=== PATIENT | female | born 1995 | race African-American/Black ===

== ENCOUNTER 2021-05-24 16:00 | Emergency (ER) | payer OTHER, SELFPAY ==
--- NOTE | ~2021-05-24 | CT_ITS ---
Indication: Fall, injury EXAMINATION: CT brain, CT cervical spine, CT facial bones. Axial imaging with coronal and sagittal reformatted images. Radiation dose is 802, 738, 549. CT brain; There is no midline shift. There is no mass effect. There is no hemorrhage. The basilar cisterns are patent. The posterior fossa is grossly within normal limits. The ventricles within normal limits. The visualized sinuses are grossly clear. CT cervical spine; Straightening of the normal lordosis. This may be due to position or spasm. There is no fracture or dislocation. CT facial bones; Nasal bone fractures. Depression on the left No acute fracture. CT/CT facial bones wo con IMPRESSION: Nasal bone fractures. Medial Depression of the left-sided fracture. Negative acute noncontrast CT of the the brain. No acute fracture or dislocation of the cervical spine. Some reversal of the normal lordosis may be due to position or spasm
--- NOTE | ~2021-05-24 | CT_ITS ---
Indication: Fall, injury EXAMINATION: CT brain, CT cervical spine, CT facial bones. Axial imaging with coronal and sagittal reformatted images. Radiation dose is 802, 738, 549. CT brain; There is no midline shift. There is no mass effect. There is no hemorrhage. The basilar cisterns are patent. The posterior fossa is grossly within normal limits. The ventricles within normal limits. The visualized sinuses are grossly clear. CT cervical spine; Straightening of the normal lordosis. This may be due to position or spasm. There is no fracture or dislocation. CT facial bones; Nasal bone fractures. Depression on the left No acute fracture. CT/CT cervical spine wo con IMPRESSION: Nasal bone fractures. Medial Depression of the left-sided fracture. Negative acute noncontrast CT of the the brain. No acute fracture or dislocation of the cervical spine. Some reversal of the normal lordosis may be due to position or spasm
--- NOTE | ~2021-05-24 | CT_ITS ---
Indication: Fall, injury EXAMINATION: CT brain, CT cervical spine, CT facial bones. Axial imaging with coronal and sagittal reformatted images. Radiation dose is 802, 738, 549. CT brain; There is no midline shift. There is no mass effect. There is no hemorrhage. The basilar cisterns are patent. The posterior fossa is grossly within normal limits. The ventricles within normal limits. The visualized sinuses are grossly clear. CT cervical spine; Straightening of the normal lordosis. This may be due to position or spasm. There is no fracture or dislocation. CT facial bones; Nasal bone fractures. Depression on the left No acute fracture. CT/CT head/brain wo con IMPRESSION: Nasal bone fractures. Medial Depression of the left-sided fracture. Negative acute noncontrast CT of the the brain. No acute fracture or dislocation of the cervical spine. Some reversal of the normal lordosis may be due to position or spasm
[2021-05-24 16:20] VITALS: BP 121/72; PULSE 94; RESP 20; TEMP 37.2; O2SAT 97; BMI 39.1
[2021-05-24] MEDS: Acetaminophen 325 MG TABLET 975 MG PO (16:56)
[2021-05-24] MEDS: oxyCODONE HCl Immed Release 5 MG TABLET PO (16:56)
--- NOTE | 2021-05-24 17:18 | ED.FALL ---
HPI - Fall General Chief Complaint: Fall Stated Complaint: fell nose pain and swelling Time Seen by Provider: 05/24/21 16:40 Source: patient Mode of arrival: ambulatory Limitations: no limitations History of Present Illness HPI Narrative: 25-year-old female presenting to the ED with complaints of facial/ nose pain with epistaxis after she sustained a fall where she was running up the stairs slipped while she was running up the stairs due to the water hitting her nose on the steps prior to arrival. She denies loss of consciousness. She denies being on any blood thinners. She denies any symptoms prior to the fall. She is complaining of facial / nose pain otherwise denies any other symptoms complaints or concerns or injuries at this time. Denies any dizziness, headaches, change in vision, nausea /vomiting, trouble swallowing or breathing, neck pain / injury, back pain / injury, abdominal pain / injury or any other symptom complaints or concerns at this time. 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) Fall from: other (walking up the stairs ) Fall witnessed: no Place fall occurred: home Loss of consciousness: none Prolonged down time: no Symptoms prior to fall: none Context: tripped/slipped Location of injury: face (nose) Severity: severe Severity scale (1-10): >10 Quality: throbbing Associated symptoms (after fall): denies Related Data Allergies Allergy/AdvReac Type Severity Reaction Status Date / Time No Known Allergies Allergy Unverified 08/09/20 16:14 Review of Systems Review of Systems: Constitutional : No changes in activity, No lethargy, No recent prior head injury, No agitation, No increased fussiness ENT/Mouth : No Ear Pain, No Nasal discharge/drainage Eyes: No Eye Pain, No Swelling, No Redness, No Foreign Body, No Vision Changes Cardiovascular : No Chest Pain, No SOB Respiratory : No Cough Gastrointestinal : No Nausea, No Vomiting, No abdominal Pain Genitourinary : No Dysuria, No Urinary Frequency, No Urinary Incontinence, No Urgency, No Flank Pain Musculoskeletal : + Facial/nose pain pain/epistaxis, No joint pain, No neck stiffness, No back pain/injury Skin : No lacerations Neuro : No unsteady gait, No Paresthesias, No Loss of Consciousness, No altered mental status, No Headache Yes all other systems are reviewed and are negative PMFSH Past Medical History Attestation statement: The following information was validated with the patient. Social History Social History Advance Directives: No Advance Directives Information Provided: Yes Patient : No Physical Exam Vital Signs: Vital Signs: Last Vital Signs Temp 98.9 F 05/24/21 16:20 Pulse 94 05/24/21 16:20 Resp 20 05/24/21 16:20 BP 121/72 05/24/21 16:20 Pulse Ox 97 05/24/21 16:20 Body Mass Index 39.1 vital signs have been reviewed as normal and appeared to be correct. Blood pressure normal. Heart rate normal. Respiration rate normal. Temperature normal. Oxygen saturation normal. Appearance: Alert. Oriented X3. No acute distress. Head: Normal external exam. Normocephalic. Atraumatic. No T[place]well signs noted. No raccoon eyes noted Eyes: PERRLA. EOMI. Conjunctiva and sclera normal. Eyelids normal. ENT: patient noted to have resolved bilateral epistaxis with dry blood at the nares no septal hematoma is noted bilaterally. Pharynx normal. Uvula midline. Moist mucous membranes. No trismus noted. No drooling noted. No muffled voice noted. Neck: Normal inspection. Neck supple. FROM. No adenopathy. No meningeal signs. CVS: Normal heart rate and rhythm. Heart sound normal. Pulses normal throughout. No murmurs/rales/gallops. Respiratory: No respiratory distress. Painless inspiration. Breath sounds normal. No wheezes/rales/rhonchi noted. Chest nontender. No accessory muscle usage noted or decreased air movement noted. Abdomen: Soft and nontender. Bowel sounds normal in all 4 quadrants. No distention noted. No organomegaly noted. No visible injury noted. Back: Full range of motion noted. No rashes/lesion/induration/fluctuance or signs of infection noted. Skin: Skin warm and dry. Normal skin color. Normal skin turgor. No rashes/lesions/lacerations noted. Extremities: Extremities exhibit normal range of motion. Extremities nontender. Neuro: Oriented X 3. No motor deficit. No sensory deficit. Reflexes normal. Normal steady gait. No focal neuro deficits noted. Vascular: + radial pulses/+ 2 distal pedal pulses/+2 dorsalis pedis b/l. Normal cap refill. No cyanosis noted to upper extremity nails and lower extremity toes nails. Course Course Course Narrative: 25-year-old female presenting to the ED with nose/facial pain and resolved bilateral epistaxis that occurred after she slipped and fell while running up the stairs. She denies loss of consciousness she is not on any blood thinners. Did not have any symptoms prior to the fall. Will obtain a CT scan of brain /cervical spine and facial bones. Provide 975mg of tylenol and 5mg of oxycodone. Then re-evaluate. MDM - Fall Medical Records Attestation: I reviewed the patient's medical records.
[2021-05-24 18:00] VITALS: BP 119/71; PULSE 71; RESP 16; TEMP 36.8; O2SAT 99
== END 2021-05-24 19:43 | disposition home or self-care (01) ==
PROVIDERS: Emergency Provider Internal Medicine; PCP Internal Medicine
DX: S02.2XXA Fracture of nasal bones, initial encounter for closed fracture (principal); W10.9XXA Fall (on) (from) unspecified stairs and steps, initial encounter; Y93.02 Activity, running; Y92.009 Unspecified place in unspecified non-institutional (private) residence as the place of occurrence of the external cause; Y99.9 Unspecified external cause status
CPT/HCPCS: 70450; 70486; 72125; 99284

== ENCOUNTER 2023-04-25 19:03 | Emergency (ER) | payer OTHER, SELFPAY ==
--- NOTE | ~2023-04-25 | XR_ITS ---
EXAMINATION: XR KNEE, LEFT CLINICAL INFORMATION: Left knee injury. Left knee pain. Patient stated that she heard a pop sound in the left knee when falling during football game. COMPARISON: Left knee x-ray of 01/01/2008 TECHNIQUE: Two views of the left knee. AP and crosstable lateral. XR/XR knee LT 2V FINDINGS/IMPRESSION: A small curvilinear density is noted adjacent to the lateral aspect of the left lateral tibial plateau as seen on the AP view, possibility of small avulsion fracture here cannot be excluded. Otherwise there is no evidence of acute fracture or dislocation. Question small suprapatellar joint effusion. No evidence of soft tissue air or radiopaque foreign body.
[2023-04-25 19:09] VITALS: BP 113/71; PULSE 79; RESP 16; TEMP 36.1; O2SAT 98; BMI 35.7
--- NOTE | 2023-04-25 19:09 | ED_ITS ---
HPI - General Adult General Chief complaint: Extremity Injury, Lower Stated complaint: fall/left knee injury Time Seen by Provider: 04/25/23 20:06 Source: patient Mode of arrival: ambulatory Limitations: no limitations History of Present Illness HPI narrative: Patient comes to the emergency room complaining of left knee pain. Patient states that earlier today she was playing flag football, she was events, she got tackled, hurt her knee popping, since then she has been unable to bear weight due to pain in the knee in the lateral aspect. Denies any other injuries Related Data Previous Rx's Medication Instructions Recorded acetaminophen 500 mg tablet 1,000 mg PO QID PRN fever or pain 05/24/21 (Tylenol Extra Strength) #14 tabs oxycodone 5 mg tablet 5 mg PO BID PRN pain #15 tabs 05/24/21 Allergies Allergy/AdvReac Type Severity Reaction Status Date / Time No Known Allergies Allergy Verified 04/25/23 19:08 Review of Systems Review of Systems: Constitutional : No Weight loss, No Fever, No Chills, No Night Sweats, No Fatigue, No Malaise ENT/Mouth : No Hearing loss, No Ear Pain, No Nasal Congestion, No Sinus Pain, No Hoarseness, No sore throat, No Rhinorrhea, No Swallowing Difficulty Eyes: No Eye Pain, No Swelling, No Redness, No Foreign Body, No Discharge, No Vision Changes Cardiovascular : No Chest Pain, No SOB, No Dyspnea on Exertion, No Orthopnea, No Edema, No Palpitations Respiratory : No Cough, No Sputum, No Wheezing, No Smoke Exposure, No Dyspnea Gastrointestinal : No Nausea, No Vomiting, No Diarrhea, No Constipation, No abdominal Pain, No Hematochezia, No Melena Genitourinary : no irregular bleeding, No Dysuria, No Urinary Frequency, No Hematuria, No Urinary Incontinence, No Urgency, No Flank Pain, No Urinary Flow Changes, No Hesitancy Musculoskeletal : Complaining of aspect on the lateral aspect of her left knee, No joint pain, No Myalgias, No Joint Swelling Skin : No Skin Lesions, No rash Neuro : No Weakness, No Numbness, No Paresthesias, No Loss of Consciousness, No Dizziness, No Headache Psych : No Anxiety/Panic, No Depression, No SI/HI/AH/VH, No Social Issues, Heme/Lymph: No Bruising, No Bleeding,No Lymphadenopathy Endocrine : No Polyuria, No Polydipsia, No Temperature Intolerance [facility] Social History Social History Advance Directives: No Advance Directives Information Provided: No Physical Exam ED Vital Signs: Vital Signs - 24 hr 04/25/23 19:09 Temperature 96.9 F Pulse Rate 79 Respiratory Rate 16 Blood Pressure 113/71 Pulse Oximetry 98 Oxygen Delivery Method Room Air BMI result Body Mass Index 35.7 Const Other: Appearance: Alert. Oriented X3. No acute distress. Eyes: Pupils equal, round and reactive to light. ENT: Pharynx normal. Neck: Normal inspection. Neck supple. No lymph nodes noted. No crepitus CVS: Normal heart rate and rhythm. Pulses normal. Normal S1 and S2 Respiratory: No respiratory distress. Breath sounds normal. No Wheezing. No rales Abdomen: Soft and nontender. No rigidity. No distention. Skin: Skin warm and dry. Normal skin color. Normal skin turgor. Extremities: No lower extremity edema. No Lacerations. No Rash. The left knee does not seem to be swollen, however patient is unable to bear weight due to pain. Neuro: Oriented X 3. No motor deficit. No sensory deficit. Moving all extremities. No slurred speech. CN 2 through 12 grossly intact Psych: calm, cooperative, normal affect Course Course Course Narrative: RME performed by Lilly Noguera PA-C. Patient is a 27 year old assigned female at presenting to the emergency department with left knee pain. Imaging ordered. Patient placed back in the waiting room pending room availability and results. Medical Decision Making Medical Decision Making MDM Narrative: -interpretation of x-rays of the left knee: Possible avulsion fracture lateral to the tibial plateau -patient provided with a posterior long-leg splint, crutches, patient instructed to not bear any weight until seen by orthopedics and have further instructions. -patient has Tylenol and ibuprofen at home, declined any further prescriptions Radiology Impression Discussion of test interpretation with radiology: I have reviewed the radiologist's reading. Radiologist Impression: FINDINGS/IMPRESSION: A small curvilinear density is noted adjacent to the lateral aspect of the left lateral tibial plateau as seen on the AP view, possibility of small avulsion fracture here cannot be excluded. Otherwise there is no evidence of acute fracture or dislocation. Question small suprapatellar joint effusion. No evidence of soft tissue air or radiopaque foreign body. Discharge Plan Discharge Clinical Impression: Fracture of left tibial plateau Patient Disposition: Home, Self-Care Instructions: Knee Pain (ED), R.I.C.E. Treatment (ED) Additional Instructions: Please follow-up with your primary care physician tomorrow. If you have any worsening or new symptoms, please return to the emergency room or call 911 Prescriptions: No Action acetaminophen [Tylenol Extra Strength] 500 mg tablet 1,000 mg PO QID PRN (Reason: fever or pain) Qty: 14 0RF oxycodone 5 mg tablet 5 mg PO BID PRN (Reason: pain) Qty: 15 0RF Referrals: Ana Carvajal PA-C [Physician [employer]] - 04/27/23
--- NOTE | 2023-04-25 21:41 | PC.NURSE ---
posterior long leg splint applied per [facility] justus in tact, provider aware
== END 2023-04-25 21:41 | disposition home or self-care (01) ==
PROVIDERS: Emergency Provider Emergency Medicine
DX: S82.142A Displaced bicondylar fracture of left tibia, initial encounter for closed fracture (principal); Y93.62 Activity, american flag or touch football; Y92.321 Football field as the place of occurrence of the external cause; Y99.8 Other external cause status; Z79.899 Other long term (current) drug therapy
CPT/HCPCS: 29505; 73560; 99283

== ENCOUNTER → 2023-04-29 14:42 | Outpatient (BNVA) | payer OTHER, SELFPAY | PROVIDERS: PCP Internal Medicine; Visit Provider Physician Assistant | DX: S82.122A Displaced fracture of lateral condyle of left tibia, initial encounter for closed fracture (principal) | CPT/HCPCS: 99202 ==

== ENCOUNTER 2023-06-10 11:28 | Outpatient (REF) | payer OTHER, SELFPAY ==
--- NOTE | ~2023-06-10 | XR_ITS ---
EXAMINATION: XR KNEE, LEFT CLINICAL INFORMATION: Pain in left knee. COMPARISON: 01/01/2008, 04/25/2023. TECHNIQUE: Two views of the left knee. FINDINGS: Small curvilinear density adjacent to the lateral aspect of the lateral tibial plateau was present on 04/25/2023, but not on exam of 01/01/2008. Borderline small joint effusion. XR/XR knee LT 2V IMPRESSION: 1. Small curvilinear density adjacent to the lateral aspect of the lateral tibial plateau was present on 04/25/2023, but not on exam of 01/01/2008. Differential considerations include chronic calcification of indeterminate etiology avulsion fracture. Small joint effusion. 2. Additional imaging with CT scan or MRI should be considered for better visualization as these modalities are much more sensitive for detection of fracture or other underlying pathology.
== END 2023-06-10 11:29 | disposition home or self-care (01) ==
LOC: HO.HOSX 11:28
PROVIDERS: Visit Provider Physician Assistant
DX: S82.122A Displaced fracture of lateral condyle of left tibia, initial encounter for closed fracture (principal)
CPT/HCPCS: 73560; 99212

== ENCOUNTER 2023-06-10 13:10 | Outpatient (AMB) | payer OTHER, SELFPAY ==
--- NOTE | 2023-06-10 13:19 | MHC.OFFVIS ---
Intake Vital Signs 06/10/23 13:22 Height 5 ft 2 in Weight 195 lb BMI 35.7 Intake Visit Reasons: OV- Left tib plateau fx, DOI 04/25/23 Intake Note: Steffi is a 27 year old female who presents today for a follow up appointment of left knee fx, DOI 04/25/23. Patient reports she is doing well, she has discomfort with squatting. She uses knee brace for comfort. Allergies No Known Allergies Allergy (Verified 06/10/23 13:19) HPI OV- Left tib plateau fx, DOI 04/25/23 HPI Details 27-year-old female who returns to the office today for a follow-up of left tibial plateau fracture, 04/25/23. She continues to have discomfort with squatting. She is using the brace as instructed and she experiences occasional knee giving out without the brace. She is doing well otherwise and has no concerns today. 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 Review of Systems Const All systems reviewed & are unremarkable except as noted in HPI and below Physical Exam Vital Signs: BMI result Body Mass Index 35.7 Const General: cooperative, healthy appearing, comfortable, no acute distress, well developed and alert Orientation/consciousness: patient oriented x3 HEENT Head: Yes normal to inspection, Yes normocephalic and Yes atraumatic Eyes General: appearance normal, both eyes and all related structures Resp Effort & Inspection: normal respiratory effort and able to speak in complete sentences Cardio Rate: regular rate Peripheral pulses: Peripheral pulses 2+ throughout GI Palpation (GI): Soft to palpation Skin Lesions: no lesions Rashes: no rashes Neuro General: patient oriented x3 Extrem Other: Left knee skin intact, no erythema or joint effusion. Tenderness along the lateral tibial condyle. Full ROM with crepitus. Negative Adry?s. No ligamentous laxity. NVI. Assessment & Plan Assessment & Plan (1) Avulsion fracture of lateral condyle of tibia: Code(s): S82.123A - Displaced fracture of lateral condyle of unspecified tibia, initial encounter for closed fracture Plan She will continue working with physical therapy and increase activity as tolerated. She will see us back if symptoms arise. Orders: Orders XR knee LT 2V Today M25.562 - Pain in left knee Patient Instructions: Scribed for Brian Manzano PA-C, by Martín Dove medical office technologist, on 06/10/2023 at 1:15 PM [email or web address]. Brian Verdugo PA-C, have personally reviewed and agree with the information entered by the scribe. Coding Level of Care Code Est Pt Level 3 (62029) Diagnoses Avulsion fracture of lateral condyle of tibia S82.123A
[2023-06-10 13:22] VITALS: BMI 35.7
== END 2023-06-10 13:43 | disposition home or self-care (01) ==
PROVIDERS: PCP Internal Medicine; Visit Provider Physician Assistant
DX: S82.123A Displaced fracture of lateral condyle of unspecified tibia, initial encounter for closed fracture (principal)
CPT/HCPCS: 99213

== ENCOUNTER 2023-06-19 10:00 | Outpatient (RCR) | payer OTHER, SELFPAY ==
--- NOTE | 2023-05-15 13:02 | MHC.PT.EP ---
[facility] [place] Office [place] Office [place] Office [address] [phone] F: [phone] F: [phone] F: [phone] F: [phone] Physical Therapy Plan of Care Date of Evaluation: Date of Surgery: NA Diagnosis: Displaced fracture of lateral condyle of unspecified tibia, initial encounter for closed fracture Assessment: Steffi is a 27 yo female referred to PT for Displaced fracture of lateral condyle of unspecified tibia, initial encounter for closed fracture . Impairments include L lateral tibial knee pain, decreased L knee ROM, impaired knee strength and gait due to pain. Functional limitations include difficulty standing and walking, difficulty bending, difficulty ascending stairs, and decreased activity tolerance. Pt to benefit from skilled PT to address aforementioned impairments and functional limitations. PT to include L knee ROM, L knee strengthening, gait training, hot/cold pack, US, STM, pt education, HEP, static/dynamic balance activities, and stair negotiation. Frequency and Duration: The patient will be seen 2x week for 5 weeks Short Term Goals: In 2 weeks... 1. Pt will be I with HEP with 100% return demonstration of HEP 2. 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 1. Pt will increase L knee strength by 1 MMT point in order to return to playing flag football 2. Pt will have no pain with all knee ROM which will enable her to ascend/descend stairs with reciprocal steps in order to enter/exit home safely Treatment Plan: Modalities to reduce pain, spasms and effusion. Manual therapy to restore motion and function. Therapeutic exercise to improve strength and flexibility. Neuromuscular re-education for posture and balance. Therapeutic activities to return to functional activities of daily living. Electronically signed by: Antonia Galeana PT DPT Please sign and return to therapist. Thank you for your referral.
--- NOTE | 2023-07-10 14:06 | MHC.PT.DC ---
[facility] [place] Office [place] Office [place] Office [address] [phone] F: [phone] F: [phone] F: [phone] F: [phone] Physical Therapy Discharge Report Diagnosis: Displaced fracture of lateral condyle of unspecified tibia, initial encounter for closed fracture Date of Surgery: NA Date of Evaluation: 05/15/23 Date of Discharge: 07/10/23 Treatments to Date: 3 Cancellations to Date: 2 No Shows to Date: 1 Discharge Status: Visit Non-compliance Discharge Summary: Steffi attended 3 PT visits after her evaluation. She canceled 2 and no showed 1. She is therefore being d/c from PT for non compliance. Electronically signed by: Antonia Galeana, PT DPT Please sign and return to therapist. Thank you for your referral.
== END 2023-07-10 14:06 | disposition home or self-care (01) ==
LOC: HO.PT 10:00
PROVIDERS: PCP Student in an Organized Health Care Education/Training Program; Visit Provider Physician Assistant
DX: S82.123D Displaced fracture of lateral condyle of unspecified tibia, subsequent encounter for closed fracture with routine healing (principal)
CPT/HCPCS: 97110; 97161; 97530

== ENCOUNTER 2023-07-30 18:30 | Emergency (ER) | payer OTHER, MEDICAID, SELFPAY ==
[2023-07-30 18:57] VITALS: BP 107/61; PULSE 81; RESP 18; TEMP 36.8; O2SAT 98; BMI 35.9
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
== END 2023-07-30 19:12 | disposition home or self-care (01) ==
LOC: HO.ED 19:11
PROVIDERS: Emergency Provider Student in an Organized Health Care Education/Training Program; PCP Internal Medicine
DX: S46.911A Strain of unspecified muscle, fascia and tendon at shoulder and upper arm level, right arm, initial encounter (principal); V43.52XA Car driver injured in collision with other type car in traffic accident, initial encounter; Y93.9 Activity, unspecified; Y92.410 Unspecified street and highway as the place of occurrence of the external cause; Y99.9 Unspecified external cause status
CPT/HCPCS: 99282; 99283